=== PATIENT | male | born 1975 | race Hispanic/Latino ===

== ENCOUNTER 2019-04-15 12:39 | Emergency (ER) | payer OTHER ==
[2019-04-15 13:19] LABS: BASOPHILS % (AUTO) 0.6 % (0.0-5.0); EOSINOPHILS % (AUTO) 0.2 % (0.0-8.0); HEMATOCRIT 49.6 % (42-54); LYMPHOCYTES % (AUTO) 6.7 % (21.0-51.0); MEAN CORPUSCULAR HEMOGLOBIN 29.4 pg (27.0-33.0); MEAN CORPUSCULAR HGB CONC 33.9 g/dL (32.0-36.0); MEAN CORPUSCULAR VOLUME 86.8 fL (79-99); MONOCYTES % (AUTO) 2.9 % (3.0-13.0); NEUTROPHILS % (AUTO) 89.6 % (40.0-77.0); PLATELET COUNT (AUTO) 300 K/uL (130-400); RED BLOOD CELL COUNT(AUTO) 5.72 MIL/uL (4.50-6.20); RED CELL DISTRIBUTION WIDTH 13.3 % (11.0-15.5); WHITE BLOOD COUNT (AUTO) 12.9 K/uL (4.8-10.8)
[2019-04-15] MEDS ORDERED: CEFTRIAXONE SODIUM 1 GM ONE (13:27)
[2019-04-15] MEDS ORDERED: ONDANSETRON HCL 4 MG/2 ML VIAL ONE ×2 (13:27→14:50)
[2019-04-15] MEDS ORDERED: SODIUM CHLORIDE 0.9% 1000ML 1,000 ML IV ONE (13:28)
[2019-04-15] MEDS ORDERED: IOHEXOL-350 75 ML VIAL IV ONE (13:30)
[2019-04-15 13:32] LABS: CREATININE 1.2 mg/dL (0.5-1.5); POTASSIUM 3.8 mmol/L (3.5-5.1)
[2019-04-15 13:42] LABS: ALBUMIN 4.6 g/dL (3.5-5.0); BILIRUBIN,TOTAL 0.7 mg/dL (0.2-1.0); TOTAL PROTEIN, SERUM 8.2 g/dL (6.0-8.3)
[2019-04-15] MEDS ORDERED: KETOROLAC TROMETHAMINE 30MG/ML ONE (14:50)
[2019-04-15] MEDS ORDERED: MORPHINE SULFATE 4 MG/1ML SYG ONE (14:50)
[2019-04-15 15:12] LABS: APPEARANCE,URINE Clear (CLEAR); BILIRUBIN,URINE Negative (NEGATIVE); COLOR,URINE Yellow (YELLOW); GLUCOSE, URINE (UA) Negative (NEGATIVE); KETONES,URINE >=160 mg/dL (NEGATIVE); LEUKOCYTE ESTERASE ,URINE Negative (NEGATIVE); NITRATE,URINE Negative (NEGATIVE); OCCULT BLOOD,URINE Large (NEGATIVE); PROTEIN,URINE Negative (NEGATIVE)
[2019-04-15 15:19] LABS: RBC,URINE 26-50 /HPF (0-1)
[2019-04-15 15:20] LABS: BACTERIA,URINE Few /HPF (None Seen)
[2019-04-15 15:24] LABS: SQUAMOUS EPITHELIAL CELL,UR Rare /HPF (0-2)
== END 2019-04-15 15:27 ==
LOC: EEVIPCON 12:39 → EDH 12:39
DX: N13.39 Other hydronephrosis (principal); N23 Unspecified renal colic
CPT/HCPCS: 36415; 74177; 80053; 81001; 82550; 85025; 96361; 96374; 96375; 96376; 99285; J0696; J1885; J2270; J2405 ×2; J7030; Q9967

== ENCOUNTER 2019-05-02 10:36 | Emergency (ER) | payer OTHER ==
[2019-05-02] MEDS ORDERED: GENTAMICIN SULFATE 0.3% 5ML DROPS ONE (11:10)
[2019-05-02] MEDS ORDERED: IBUPROFEN 600 MG TABLET ONE (11:10)
[2019-05-02] MEDS ORDERED: DIPHENHYDRAMINE HCL 25 MG CAPSULE ONE (11:10)
== END 2019-05-02 11:22 | disposition home or self-care (01) ==
LOC: EDH 10:36
DX: H10.9 Unspecified conjunctivitis (principal)
CPT/HCPCS: 99284; Q0163